=== PATIENT | female | born 1930 | race Caucasian/White ===

== ENCOUNTER 2018-02-13 13:28 | Inpatient (IN) | payer OTHER ==
[~2018-02-13] VITALS: Ht 160 cm; Wt 55.8 kg
[~2018-02-13 13:28] MED LIST: AMIODARONE HCL 50 MG/ML 3 ML VIAL IV ONE; ASPI-1197 PO; ATOR10 PO; CALC-1038 PO; CARV3.12 PO; CETI-101 PO; CHOL100040 PO; CYAN250014 PO; DRON400T2 PO; ESTR0.9T2 PO; FLUT16H NASAL; FURO40TA5 PO; FURO40TA7 PO; LOSA25TA21 PO; METOPROLOL TARTRATE 25 MG TAB PO SCH; NITR0.4T50 SL; POTA10CA44 PO; TYL3 PO; WARF-57 PO; WARF2.5T47 PO; WHEA1POW2 PO; ZINC50TA4 PO
[2018-02-13 13:52] LABS: BASOPHILS % (AUTO) 1.2 % (0.0-5.0); EOSINOPHILS % (AUTO) 6.8 % (0.0-8.0); LYMPHOCYTES % (AUTO) 38.3 % (21.0-51.0); MEAN CORPUSCULAR HEMOGLOBIN 28.7 pg (27.0-33.0); MEAN CORPUSCULAR VOLUME 87.2 fL (79-99); MONOCYTES % (AUTO) 6.9 % (3.0-13.0); NEUTROPHILS % (AUTO) 46.8 % (40.0-77.0); PLATELET COUNT (AUTO) 194 K/uL (130-400); RED BLOOD CELL COUNT(AUTO) 4.36 MIL/uL (4.00-5.50); WHITE BLOOD COUNT (AUTO) 7.6 K/uL (4.8-10.8)
[2018-02-13 14:01] LABS: CREATININE 0.9 mg/dL (0.5-1.5); POTASSIUM 3.7 mmol/L (3.5-5.1)
[2018-02-13 14:03] LABS: INR 2.58 (0.85-1.15); PARTIAL THROMBOPLASTIN TIME 36.2 SEC (26.3-35.5); PROTHROMBIN TIME 26.6 SEC (9.6-11.6)
[2018-02-13 14:05] LABS: BILIRUBIN,TOTAL 0.7 mg/dL (0.2-1.0); TOTAL PROTEIN, SERUM 8.1 g/dL (6.0-8.3)
[2018-02-13 14:50] LABS: B-TYPE NATRIURETIC PEPTIDE 1300 pg/mL (0-100)
[2018-02-13] MEDS ORDERED: IOPAMIDOL-370 100 ML VIAL IV ONE (14:51)
[2018-02-13] MEDS ORDERED: IPRATROPIUM/ALBUTEROL SULFATE 3 ML SOLUTION IH ONE (15:41)
[2018-02-13] MEDS ORDERED: FUROSEMIDE 10 MG/ML 2ML VIAL ONE (15:44)
[2018-02-13] MEDS ORDERED: METHYLPREDNISOLONE SOD SUCC 40MG/ML 1ML ONE (15:44)
[2018-02-13 17:09] VITALS: BP 184/87
[2018-02-13] MEDS ORDERED: ONDANSETRON HCL MDV 20ML 2 MG/ML VIAL IVP PRN (18:00)
[2018-02-13] MEDS: IPRATROPIUM/ALBUTEROL SULFATE 3 ML SOLUTION IH SCH (18:00)
[2018-02-13] MEDS ORDERED: ACETAMINOPHEN 325 MG TAB PO PRN (18:00)
[2018-02-13] MEDS ORDERED: POTA-9 PO (18:31)
[2018-02-13] MEDS ORDERED: FURO-152 PO (18:31)
[2018-02-13] MEDS ORDERED: ASPI-1197 PO (18:31)
[2018-02-13] MEDS ORDERED: ATOR10TA69 PO (18:31)
[2018-02-13] MEDS ORDERED: WARF2.5T85 PO (18:31)
[2018-02-13] MEDS ORDERED: CETI10CA5 PO (18:31)
[2018-02-13] MEDS ORDERED: WARF-57 PO (18:31)
[2018-02-13] MEDS ORDERED: METO25TA6 PO (18:31)
[2018-02-13] MEDS ORDERED: CHOL100040 PO (18:31)
[2018-02-13] MEDS ORDERED: LOSA25TA21 PO (18:34)
[2018-02-13 19:11] LABS: CREATINE KINASE MB 1.8 ng/mL (0.5-3.6); CREATINE KINASE, TOTAL 103 U/L (21-232); MYOGLOBIN 77 ng/mL (10-92); TROPONIN I < 0.04 ng/mL (0.00-0.06)
[2018-02-13 20:00] VITALS: BP 140/68
[2018-02-13] MEDS ORDERED: DOFE250C PO ×2 (20:21)
[2018-02-13] MEDS ORDERED: CALC-1038 PO (20:21)
[2018-02-13] MEDS: METHYLPREDNISOLONE SOD SUCC 40MG/ML 1ML IVP SCH (21:52)
[2018-02-13] MEDS ORDERED: CALCIUM CARBONATE 500 MG TABLET PO SCH (22:15)
[2018-02-13] MEDS ORDERED: ATORVASTATIN CALCIUM 10 MG TABLET ONE (23:19)
[2018-02-13] MEDS ORDERED: WARFARIN SODIUM 2.5 MG TAB ONE (23:20)
[2018-02-13 23:50] VITALS: BP 156/75
[2018-02-14] VITALS (17 sets, daily range): BP systolic 112–164; BP diastolic 48–94
[2018-02-14] MEDS ORDERED: DOFE250C PO (02:59)
[2018-02-14] MEDS: FUROSEMIDE 10 MG/ML 2ML VIAL IVP SCH ×3 (03:07→20:14)
[2018-02-14 06:06] LABS: BASOPHILS % (AUTO) 0.1 % (0.0-5.0); HEMATOCRIT 35.7 % (36-48); LYMPHOCYTES % (AUTO) 15.3 % (21.0-51.0); MEAN CORPUSCULAR HEMOGLOBIN 29.7 pg (27.0-33.0); MEAN CORPUSCULAR HGB CONC 34.8 g/dL (32.0-36.0); MEAN CORPUSCULAR VOLUME 85.5 fL (79-99); MONOCYTES % (AUTO) 0.7 % (3.0-13.0); NEUTROPHILS % (AUTO) 83.9 % (40.0-77.0); PLATELET COUNT (AUTO) 196 K/uL (130-400); RED BLOOD CELL COUNT(AUTO) 4.17 MIL/uL (4.00-5.50); RED CELL DISTRIBUTION WIDTH 15.3 % (11.0-15.5); WHITE BLOOD COUNT (AUTO) 5.6 K/uL (4.8-10.8)
[2018-02-14 06:17] LABS: INR 2.19 (0.85-1.15); PROTHROMBIN TIME 22.6 SEC (9.6-11.6)
[2018-02-14 06:21] LABS: B-TYPE NATRIURETIC PEPTIDE 1460 pg/mL (0-100)
[2018-02-14] MEDS: IPRATROPIUM/ALBUTEROL SULFATE 3 ML SOLUTION IH SCH ×4 (06:25→19:18)
[2018-02-14] MEDS: METHYLPREDNISOLONE SOD SUCC 40MG/ML 1ML IVP SCH (06:29)
[2018-02-14 07:10] LABS: CREATININE 1.2 mg/dL (0.5-1.5); POTASSIUM 3.6 mmol/L (3.5-5.1)
[2018-02-14] MEDS ORDERED: DOFETILIDE 250 MCG PO SCH ×2 (09:00→21:00)
[2018-02-14] MEDS: LOSARTAN POTASSIUM PO SCH (09:00)
[2018-02-14] MEDS ORDERED: HOME MEDICATION 1 EACH PO SCH (09:00)
[2018-02-14] MEDS: VITAMIN D3 1000 UNIT PO SCH (09:00)
[2018-02-14] MEDS: ASPIRIN 81MG TAB.CHEW PO SCH (09:47)
[2018-02-14] MEDS: METOPROLOL TARTRATE 25 MG TAB PO SCH ×2 (09:48→20:13)
[2018-02-14] MEDS: CETIRIZINE HCL 5 MG TABLET PO SCH (09:48)
[2018-02-14] MEDS ORDERED: METOPROLOL TARTRATE 1 MG/ML 5ML VIAL IV ONE ×2 (12:02→12:29)
[2018-02-14 12:31] LABS: HEMATOCRIT 36.8 % (36-48); MEAN CORPUSCULAR HEMOGLOBIN 29.5 pg (27.0-33.0); MEAN CORPUSCULAR HGB CONC 34.3 g/dL (32.0-36.0); MEAN CORPUSCULAR VOLUME 85.9 fL (79-99); PLATELET COUNT (AUTO) 201 K/uL (130-400); RED BLOOD CELL COUNT(AUTO) 4.29 MIL/uL (4.00-5.50); RED CELL DISTRIBUTION WIDTH 15.3 % (11.0-15.5); WHITE BLOOD COUNT (AUTO) 12.9 K/uL (4.8-10.8)
[2018-02-14 12:39] LABS: CREATININE 1.6 mg/dL (0.5-1.5); POTASSIUM 3.2 mmol/L (3.5-5.1)
[2018-02-14 12:43] LABS: ALBUMIN 3.9 g/dL (3.5-5.0); BILIRUBIN,TOTAL 0.6 mg/dL (0.2-1.0)
[2018-02-14] MEDS ORDERED: AMIODARONE HCL 900 MG in DEXTROSE 5%-WATER 500 ML IV SCH (12:45)
[2018-02-14] MEDS ORDERED: AMIODARONE HCL 150 MG in DEXTROSE 5%-WATER 100 ML IV SCH (12:45)
[2018-02-14 12:48] LABS: INR 2.46 (0.85-1.15); PARTIAL THROMBOPLASTIN TIME 33.5 SEC (26.3-35.5); PROTHROMBIN TIME 25.4 SEC (9.6-11.6)
[2018-02-14 12:59] LABS: CREATINE KINASE MB 1.3 ng/mL (0.5-3.6); CREATINE KINASE, TOTAL 105 U/L (21-232); MYOGLOBIN 121 ng/mL (10-92); TROPONIN I < 0.04 ng/mL (0.00-0.06)
[2018-02-14] MEDS ORDERED: SODIUM CHLORIDE 0.9% 1000ML 1,000 ML IV SCH (13:24)
[2018-02-14] MEDS ORDERED: MAGNESIUM 2GM PREMIX 50ML 50 ML IV ONE (13:31)
[2018-02-14] MEDS ORDERED: POTASSIUM CHLORIDE 20MEQ/100ML 100 ML IV ONE (13:49)
[2018-02-14] MEDS ORDERED: POTASSIUM CHLORIDE 20MEQ/100ML 100 ML IV PRN (14:00)
[2018-02-14] MEDS ORDERED: POTASSIUM CHLORIDE 20 MEQ ERTAB PO PRN (14:00)
[2018-02-14] MEDS ORDERED: LIDOCAINE HCL-MPF 1% 2ML VIAL IVP PRN (14:00)
[2018-02-14] MEDS ORDERED: MAGNESIUM 2GM PREMIX 50ML 50 ML IV PRN (14:00)
[2018-02-14] MEDS ORDERED: POTASSIUM CHLORIDE 10% ELIXIR 20 MEQ/15 ML UDCUP PO PRN (14:00)
[2018-02-14] MEDS: WARFARIN SODIUM 5 MG TAB PO SCH (16:37)
[2018-02-14 18:04] LABS: MAGNESIUM 2.5 mg/dL (1.80-2.40); POTASSIUM 3.5 mmol/L (3.5-5.1)
[2018-02-14] MEDS: ATORVASTATIN CALCIUM 10 MG TABLET PO SCH (20:12)
[2018-02-14] MEDS: DOFETILIDE 250 MCG PO SCH (20:14)
[2018-02-15] VITALS (9 sets, daily range): BP systolic 95–154; BP diastolic 43–86
[2018-02-15 04:41] LABS: CREATININE 1.1 mg/dL (0.5-1.5); MAGNESIUM 2.4 mg/dL (1.80-2.40); POTASSIUM 4.7 mmol/L (3.5-5.1)
[2018-02-15] MEDS: IPRATROPIUM/ALBUTEROL SULFATE 3 ML SOLUTION IH SCH ×4 (06:44→23:18)
[2018-02-15] MEDS: VITAMIN D3 1000 UNIT PO SCH (09:00)
[2018-02-15] MEDS ORDERED: FUROSEMIDE 20 MG TABLET PO SCH (09:00)
[2018-02-15] MEDS: LOSARTAN POTASSIUM PO SCH (09:00)
[2018-02-15] MEDS: ASPIRIN 81MG TAB.CHEW PO SCH (09:06)
[2018-02-15] MEDS: METOPROLOL TARTRATE 25 MG TAB PO SCH ×2 (09:06→20:29)
[2018-02-15] MEDS: POTASSIUM CHLORIDE 10 MEQ/TAB.SA PO SCH (09:06)
[2018-02-15] MEDS: CETIRIZINE HCL 5 MG TABLET PO SCH (09:06)
[2018-02-15] MEDS: FUROSEMIDE 10 MG/ML 2ML VIAL IVP SCH (09:07)
[2018-02-15] MEDS: MAGNESIUM CHLORIDE 70 MG TABLET.SA PO SCH (15:55)
[2018-02-15] MEDS ORDERED: WARFARIN SODIUM 2.5 MG TAB PO SCH (16:00)
[2018-02-15] MEDS: ATORVASTATIN CALCIUM 10 MG TABLET PO SCH (20:29)
[2018-02-15] MEDS: DOFETILIDE 250 MCG PO SCH (20:30)
[2018-02-16] VITALS (7 sets, daily range): BP systolic 129–157; BP diastolic 70–87
[2018-02-16 04:12] LABS: HEMATOCRIT 35.3 % (36-48); MEAN CORPUSCULAR HEMOGLOBIN 29.6 pg (27.0-33.0); MEAN CORPUSCULAR HGB CONC 34.3 g/dL (32.0-36.0); MEAN CORPUSCULAR VOLUME 86.5 fL (79-99); PLATELET COUNT (AUTO) 189 K/uL (130-400); RED BLOOD CELL COUNT(AUTO) 4.08 MIL/uL (4.00-5.50); RED CELL DISTRIBUTION WIDTH 15.9 % (11.0-15.5); WHITE BLOOD COUNT (AUTO) 10.2 K/uL (4.8-10.8)
[2018-02-16 04:19] LABS: MAGNESIUM 2.4 mg/dL (1.80-2.40); PHOSPHORUS 2.8 mg/dL (2.5-4.9)
[2018-02-16 05:12] LABS: PARTIAL THROMBOPLASTIN TIME 36.6 SEC (26.3-35.5)
[2018-02-16 05:15] LABS: INR 4.01 (0.85-1.15)
[2018-02-16] MEDS: IPRATROPIUM/ALBUTEROL SULFATE 3 ML SOLUTION IH SCH (05:39)
[2018-02-16] MEDS: WARFARIN SODIUM 5 MG TAB PO SCH (07:01)
[2018-02-16] MEDS: CETIRIZINE HCL 5 MG TABLET PO SCH (08:59)
[2018-02-16] MEDS: ASPIRIN 81MG TAB.CHEW PO SCH (08:59)
[2018-02-16] MEDS: MAGNESIUM CHLORIDE 70 MG TABLET.SA PO SCH (08:59)
[2018-02-16] MEDS ORDERED: POTASSIUM CHLORIDE 20 MEQ ERTAB PO SCH (09:00)
[2018-02-16] MEDS: POTASSIUM CHLORIDE 10 MEQ/TAB.SA PO SCH (09:00)
[2018-02-16] MEDS: FUROSEMIDE 20 MG TABLET PO SCH (09:00)
[2018-02-16] MEDS: VITAMIN D3 1000 UNIT PO SCH (09:00)
[2018-02-16] MEDS: METOPROLOL TARTRATE 25 MG TAB PO SCH ×2 (09:00→20:36)
[2018-02-16] MEDS: LOSARTAN POTASSIUM PO SCH (09:02)
[2018-02-16] MEDS: DOFETILIDE 250 MCG PO SCH ×2 (09:03→20:36)
[2018-02-16] MEDS: POTASSIUM CHLORIDE 20 MEQ ERTAB PO SCH ×2 (09:04→20:37)
[2018-02-16] MEDS ORDERED: DOFE250C4 PO (17:18)
[2018-02-16] MEDS: ATORVASTATIN CALCIUM 10 MG TABLET PO SCH (20:36)
[2018-02-17 03:22] VITALS: BP 132/78
[2018-02-17 04:32] LABS: MAGNESIUM 2.3 mg/dL (1.80-2.40); POTASSIUM 4.4 mmol/L (3.5-5.1)
[2018-02-17 04:46] LABS: INR 2.22 (0.85-1.15); PARTIAL THROMBOPLASTIN TIME 33.6 SEC (26.3-35.5); PROTHROMBIN TIME 22.9 SEC (9.6-11.6)
[2018-02-17] MEDS ORDERED: MAGN250T2 PO (06:30)
[2018-02-17] MEDS ORDERED: POTA20PA32 PO (06:30)
[2018-02-17 07:36] VITALS: BP 141/75
[2018-02-17] MEDS: VITAMIN D3 1000 UNIT PO SCH (09:00)
[2018-02-17] MEDS: POTASSIUM CHLORIDE 10 MEQ/TAB.SA PO SCH (09:00)
[2018-02-17] MEDS ORDERED: DOFETILIDE 500 MCG PO SCH (09:00)
[2018-02-17] MEDS: METOPROLOL TARTRATE 25 MG TAB PO SCH (10:05)
[2018-02-17] MEDS: CETIRIZINE HCL 5 MG TABLET PO SCH (10:05)
[2018-02-17] MEDS: MAGNESIUM CHLORIDE 70 MG TABLET.SA PO SCH (10:05)
[2018-02-17] MEDS: FUROSEMIDE 20 MG TABLET PO SCH (10:06)
[2018-02-17] MEDS: ASPIRIN 81MG TAB.CHEW PO SCH (10:10)
[2018-02-17] MEDS: POTASSIUM CHLORIDE 20 MEQ ERTAB PO SCH (10:10)
[2018-02-17] MEDS: LOSARTAN POTASSIUM PO SCH (10:14)
== END 2018-02-17 13:15 | disposition home or self-care (01) | DRG 292 ==
LOC: EDH 13:28 → OBSVTOIN 15:00 → EDHIP 15:00 → 3BH 16:50 → 2CH 02-14 12:40 → 2AH 02-15 15:37
PROVIDERS: ADMIT Internal Medicine; ATTEND Internal Medicine
DX: I11.0 Hypertensive heart disease with heart failure (principal); I47.2 Ventricular tachycardia; D68.59 Other primary thrombophilia; E87.5 Hyperkalemia; E83.42 Hypomagnesemia; I25.5 Ischemic cardiomyopathy; I25.10 Atherosclerotic heart disease of native coronary artery without angina pectoris; I50.23 Acute on chronic systolic (congestive) heart failure; E78.5 Hyperlipidemia, unspecified; I34.0 Nonrheumatic mitral (valve) insufficiency; I48.0 Paroxysmal atrial fibrillation; I48.2 Chronic atrial fibrillation; Z79.01 Long term (current) use of anticoagulants; Z79.82 Long term (current) use of aspirin; I25.2 Old myocardial infarction; Z79.899 Other long term (current) drug therapy; Z87.891 Personal history of nicotine dependence; Z90.710 Acquired absence of both cervix and uterus; Z95.0 Presence of cardiac pacemaker; Z88.2 Allergy status to sulfonamides; Z88.7 Allergy status to serum and vaccine; Z88.8 Allergy status to other drugs, medicaments and biological substances
CPT/HCPCS: 36415; 71045; 71275; 80048; 80053; 82550; 82553; 82948; 83605; 83735; 83874; 83880; 84100; 84132; 84484; 85025; 85027; 85378; 85610; 85730; 87040; 93005; 93306; 94640; 94664; J0282; J1940; J2920; J3475; J3480; J3490; J7060; Q9967